=== PATIENT | female | born 1975 | race Native Hawaiian/Other Pacific Islander ===

== ENCOUNTER 2021-02-09 12:39 | Emergency (ER) | payer OTHER ==
[~2021-02-09] VITALS: Ht 162.6 cm; Wt 53.5 kg
[2021-02-09 12:49] VITALS: BP 106/69; TEMP 98.7
[2021-02-09 14:06] LABS: POTASSIUM 3.6 mmol/L (3.6-5.2)
[2021-02-09 14:07] LABS: PLATELET COUNT 490 K/uL (152-353)
== END 2021-02-09 16:15 | disposition home or self-care (01) ==
LOC: ED 12:39
PROVIDERS: Emergency Medicine Emergency Medical Services
DX: F11.23 Opioid dependence with withdrawal (principal)
CPT/HCPCS: 80053; 85027; 96360; 96374; 99284; J2270

== ENCOUNTER 2021-02-12 11:10 | Emergency (ER) | payer OTHER ==
[~2021-02-12] VITALS: Ht 162.6 cm; Wt 53.5 kg
[2021-02-12 11:39] VITALS: BP 97/75; TEMP 98
== END 2021-02-12 12:05 | disposition still patient (30) ==
LOC: ED 11:10
DX: G89.4 Chronic pain syndrome (principal); F11.20 Opioid dependence, uncomplicated
CPT/HCPCS: 99281

== ENCOUNTER 2021-11-07 17:45 | Emergency (ER) | payer OTHER ==
[~2021-11-07] VITALS: Ht 162.6 cm; Wt 54.4 kg
[2021-11-07 18:45] VITALS: BP 120/71; TEMP 98.3
== END 2021-11-07 18:50 | disposition home or self-care (01) ==
LOC: ED 17:45
DX: L01.09 Other impetigo (principal); L03.319 Cellulitis of trunk, unspecified; L03.114 Cellulitis of left upper limb; L03.113 Cellulitis of right upper limb; L03.116 Cellulitis of left lower limb; L03.115 Cellulitis of right lower limb
CPT/HCPCS: 36415; 96365; 96375; 99284; J0696; J1200; J2930

== ENCOUNTER 2022-10-07 14:53 | Emergency (ER) | payer OTHER ==
[~2022-10-07] VITALS: Ht 162.6 cm; Wt 50.8 kg
[2022-10-07 16:52] LABS: PLATELET COUNT 260 K/uL (152-353); POTASSIUM 4.2 mmol/L (3.6-5.2)
[2022-10-08 23:00] VITALS: BP 106/67; TEMP 97.7
== END 2022-10-09 12:10 | disposition home or self-care (01) ==
LOC: ED 14:53
PROVIDERS: Family Medicine
DX: S61.512A Laceration without foreign body of left wrist, initial encounter (principal); S61.011A Laceration without foreign body of right thumb without damage to nail, initial encounter; X78.9XXA Intentional self-harm by unspecified sharp object, initial encounter; F17.210 Nicotine dependence, cigarettes, uncomplicated
CPT/HCPCS: 80053; 80143; 80179; 80307; 80320; 81000; 85027; 87077; 87086; 87088; 87186; 93005; 96372; 99285; J1200; J1630; J1885; J3486

== ENCOUNTER 2023-06-06 16:53 | Emergency (ER) | payer OTHER ==
[~2023-06-06] VITALS: Ht 162.6 cm; Wt 59.0 kg
[2023-06-06] MEDS ORDERED: SODIUM CHLORIDE 0.9% ONE (16:58)
[2023-06-06 17:21] LABS: PLATELET COUNT 301 K/uL (152-353)
[2023-06-06 17:27] LABS: POTASSIUM 3.4 mmol/L (3.6-5.2)
[2023-06-06] MEDS ORDERED: IBUPROFEN 400 MG TAB PO ONE ×2 (17:38→17:47)
[2023-06-06] MEDS ORDERED: [UNRECOGNIZED DRUG - OTHER] IM ONE ×2 (20:19→20:21)
[2023-06-06] MEDS ORDERED: STERILE WATER INJ ONE (20:21)
[2023-06-06] MEDS ORDERED: TETANUS TOXOID-DIPHTHERIA-ACEL 0.5 ML INJ IM ONE (20:29)
[2023-06-06] MEDS ORDERED: TETANUS TOXOID-DIPHTHERIA-ACEL 0.5 ML INJ ONE ×2 (20:30→20:50)
[2023-06-06] MEDS ORDERED: LORAZEPAM 1 MG TAB PO ONE ×2 (21:58→22:02)
[2023-06-07] MEDS ORDERED: CEFTRIAXONE SODIUM IM ONE (05:54)
[2023-06-07] MEDS ORDERED: TORADOL 60MG/2ML INJ IM ONE ×2 (05:55)
[2023-06-07] MEDS ORDERED: CEFTRIAXONE SODIUM 1,000 MG IV ONE (05:58)
[2023-06-07] MEDS ORDERED: LIDOCAINE MPF 1% 5ML ONE (05:59)
[2023-06-07] MEDS ORDERED: CEFTRIAXONE SODIUM 1,000 MG INJ IM ONE (06:05)
[2023-06-07 06:42] LABS: PLATELET COUNT 257 K/uL (152-353)
[2023-06-07 06:49] LABS: POTASSIUM 3.7 mmol/L (3.6-5.2)
[2023-06-09] MEDS ORDERED: DIPHENHYDRAMINE HCL 50 MG INJ IM ONE (01:23)
[2023-06-09] MEDS ORDERED: [UNRECOGNIZED DRUG - OTHER] IM ONE ×2 (01:23→01:26)
[2023-06-09] MEDS ORDERED: STERILE WATER INJ ONE (01:25)
[2023-06-09] MEDS ORDERED: DIPHENHYDRAMINE HCL 50 MG INJ ONE (01:25)
[2023-06-09 08:00] VITALS: TEMP 98.2
[2023-06-09 10:38] VITALS: BP 108/70
== END 2023-06-09 10:38 | disposition home or self-care (01) ==
LOC: ED 16:53
PROVIDERS: Internal Medicine Endocrinology, Diabetes & Metabolism
DX: R45.851 Suicidal ideations (principal); R52 Pain, unspecified; M32.8 Other forms of systemic lupus erythematosus
CPT/HCPCS: 36415; 80053; 80143; 80179; 80307; 80320; 81000; 81025; 85027; 87077; 87086; 87088; 87186; 90471; 90715; 96372; 99285; J0696; J1200; J1885; J3486; J7040